=== PATIENT | female | born 1960 | race Caucasian/White ===

== ENCOUNTER 2016-10-31 19:04 | Observation (INO) | payer BC ==
--- NOTE | 2016-10-31 20:39 | PDOC ---
History of Present Illness - General Chief Complaint: Pain Stated Complaint: PAIN, ACUTE Time Seen by Provider: 10/31/16 19:34 History Source: Patient Exam Limitations: No Limitations - History of Present Illness Initial Comments: 10/31/16 23:55 10/27/2016: Colonoscopy 55-year-old female presents to the emergency department complaining of 4/10 dull intermittent left-sided flank pain radiating to the left groin 6 hours without nausea/vomiting, fever/chills, chest pain, shortness of breath, abdominal pains, urinary symptoms: Frequency/urgency/hesitancy, hematuria. There are no alleviating or exacerbating factors. Timing/Duration: 4-6 hours Past History - Past Medical History Allergies/Adverse Reactions: Allergies Allergy/AdvReac Type Severity Reaction Status Date / Time No Known Allergies Allergy Verified 06/30/15 12:49 Home Medications: Ambulatory Orders Atorvastatin Ca [Lipitor] 40 mg PO HS 07/18/13 Albuterol Sulfate Inhaler - [Ventolin HFA Inhaler -] 1 - 2 inh PO QID PRN Linaclotide [Linzess] 72 mcg PO DAILY 10/31/16 Metronidazole 250 mg PO TID 10/31/16 Ranitidine HCl 300 mg PO DAILY 10/31/16 Anemia: No Asthma: Yes (mild) Cancer: No Cardiac Disorders: No CVA: No COPD: No CHF: No Dementia: No Diabetes: No GI Disorders: Yes (acid reflux, Irritable Bowel Syndrome) Disorders: No HTN: No Hypercholesterolemia: Yes Liver Disease: No Seizures: No Thyroid Disease: No - Surgical History Abdominal Surgery: No Appendectomy: No Cardiac Surgery: No Cholecystectomy: No Gastric Stapling: No Lung Surgery: No Neurologic Surgery: No Orthopedic Surgery: No - Psycho/Social/Smoking Cessation Hx Anxiety: No Suicidal Ideation: No Smoking History: Never smoked Have you smoked in the past 12 months: No If you are a former smoker, when did you quit?: 2009 Information on smoking cessation initiated: No Hx Alcohol Use: No Drug/Substance Use Hx: No Substance Use Type: None Hx Substance Use Treatment: No *Physical Exam - Vital Signs Last Vital Signs Temp Pulse Resp BP Pulse Ox 98.0 F 78 18 140/74 99 10/31/16 19:23 10/31/16 19:23 10/31/16 19:23 10/31/16 19:23 10/31/16 19:23 ED Treatment Course - LABORATORY CBC & Chemistry Diagram: 10/31/16 19:40 10/31/16 19:40 *DC/Admit/Observation/Transfer Diagnosis at time of Disposition: Pyelonephritis - Discharge Dispostion Condition at time of disposition: Guarded Admit: Yes - Referrals Referrals: Kaci Ng MD [Primary Care Provider] -
[2016-10-31 21:09] LABS: BASOPHIL 0.1 % (0-2.0); MCH 26.9 pg (25.7-33.7); MCHC 32.9 g/dl (32.0-36.0); MEAN CELL VOLUME 81.7 fl (80-96); MEAN PLT VOLUME 8.5 fl (7.5-11.1); NEUTROPHILS 87.1 % (42.8-82.8); PLATELET COUNT 251 K/MM3 (134-434); RDW 14.3 % (11.6-15.6); WHITE BLOOD COUNT 18.7 K/mm3 (4.0-10.0)
[2016-10-31 21:34] LABS: ALBUMIN 3.9 g/dl (3.4-5.0); ANION GAP 7 (8-16); CALCIUM 9.4 mg/dL (8.5-10.1); CO2 27 mmol/L (21-32); CREATININE 0.7 mg/dL (0.55-1.02); GLUCOSE,RANDOM 107 mg/dL (74-106); SGOT/AST 24 U/L (15-37); SGPT/ALT 43 U/L (12-78)
[2016-10-31 21:35] LABS: ALK PHOS 138 U/L (45-117); BILIRUBIN,TOTAL 0.9 mg/dL (0.2-1.0); TOT PROT 7.3 g/dl (6.4-8.2)
[2016-10-31 21:38] LABS: URINE APPEARANCE SLCLOUDY; URINE BILIRUBIN NEGATIVE (NEGATIVE); URINE BLOOD NEGATIVE (NEGATIVE); URINE GLUCOSE (UA) NEGATIVE (NEGATIVE); URINE KETONE NEGATIVE (NEGATIVE); URINE LEUK ESTERASE TRACE (NEGATIVE); URINE NITRITE NEGATIVE (NEGATIVE); URINE PROTEIN NEGATIVE (NEGATIVE); URINE UROBILINOGEN NEGATIVE mg/dL (0.2-1.0)
[2016-10-31 21:39] LABS: URINE COLOR YELLOW
[2016-10-31 21:50] LABS: CALCIUM OXALATE CRYSTALS MODERATE /hpf (NONE SEEN); URINE HYALINE CAST 6 /lpf; URINE MUCUS MANY; URINE WBC 31 /hpf (3-5)
[2016-10-31] MEDS: SODIUM CHLORIDE 1,000 ML IV STA (21:52)
--- NOTE | 2016-10-31 22:30 | PDOC ---
*Physical Exam - Vital Signs Last Vital Signs Temp Pulse Resp BP Pulse Ox 98.0 F 78 18 140/74 99 10/31/16 19:23 10/31/16 19:23 10/31/16 19:23 10/31/16 19:23 10/31/16 19:23 ED Treatment Course - LABORATORY CBC & Chemistry Diagram: 11/01/16 09:57 11/01/16 09:57 - ADDITIONAL ORDERS Additional order review: Laboratory Results 10/31/16 10/31/16 21:20 19:40 Sodium 137 Potassium 3.7 Chloride 103 Carbon Dioxide 27 Anion Gap 7 L BUN 18 D Creatinine 0.7 Creat Clearance w eGFR > 60 Random Glucose 107 H D Calcium 9.4 Total Bilirubin 0.9 D AST 24 ALT 43 Alkaline Phosphatase 138 H Total Protein 7.3 Albumin 3.9 Urine Color Yellow Urine Appearance Slcloudy Urine pH 5.0 Urine Protein Negative Urine Glucose (UA) Negative Urine Ketones Negative Urine Blood Negative Urine Nitrite Negative Urine Bilirubin Negative Urine Urobilinogen Negative Ur Leukocyte Esterase Trace Urine RBC None Urine WBC 31 Calcium Oxalate Crystal Moderate Hyaline Casts 6 Urine Mucus Many 10/31/16 19:40 RBC 4.80 MCV 81.7 MCHC 32.9 RDW 14.3 MPV 8.5 Neutrophils % 87.1 H D Lymphocytes % 6.9 L D Monocytes % 4.9 Eosinophils % 1.0 Basophils % 0.1 - Medications Given in the ED: ED Medications Discontinued Medications Generic Name Dose Route Start Last Admin Trade Name Freq PRN Reason Stop Dose Admin Sodium Chloride 1,000 mls @ 1,000 mls/hr 10/31/16 20:40 10/31/16 21:52 Normal Saline - IV 10/31/16 21:39 1,000 mls/hr ASDIR STA Administration Medical Decision Making - Medical Decision Making 10/31/16 22:30 Pt seen by the Advanced Practice Provider under my direct supervision Ancillary studies reviewed I agree with plan as outlined by the Advanced Practice Provider TERRI Oh *DC/Admit/Observation/Transfer Diagnosis at time of Disposition: Pyelonephritis - Discharge Dispostion Condition at time of disposition: Guarded
[2016-11-01] MEDS ORDERED: CEFTRIAXONE 1 GM in DEXTROSE 5%-WATER - 50 ML IVPB ONE (00:39)
[2016-11-01] MEDS ORDERED: CEFTRIAXONE 50 ML ONE (00:58)
--- NOTE | 2016-11-01 02:14 | HP ---
CHIEF COMPLAINT: "My left side is hurting." PCP: Berenice HISTORY OF PRESENT ILLNESS: This is a 55yo woman presents to the emergency department complaining of 4/10 dull intermittent left-sided flank pain radiating to the left groin 6 hours with frequency and urgency without nausea/ vomiting, fever/chills, chest pain, shortness of breath, abdominal pains, urinary symptoms: hesitancy, hematuria. There are no alleviating or exacerbating factors. ER course was notable for: (1) pyuria (2) Leukocytosis Recent Travel: denies PAST MEDICAL HISTORY: IBS, GERD, HLD PAST SURGICAL HISTORY: denies Social History: Smoking: former- quit 5-6 years ago. 20 pack years prior Alcohol: occasional Drugs: occasional THC Family History: father and mother of "heart failure" 1 brother and 1 sister alive and healthy Allergies No Known Allergies Allergy (Verified 06/30/15 12:49) HOME MEDICATIONS: Home Medications Medication Instructions Recorded Atorvastatin Ca [Lipitor] 40 mg PO HS 07/18/13 Albuterol Sulfate Inhaler - 1 - 2 inh PO QID PRN 12/06/13 [Ventolin HFA Inhaler -] Linaclotide [Linzess] 72 mcg PO DAILY 10/31/16 Metronidazole 250 mg PO TID 10/31/16 Ranitidine HCl 300 mg PO DAILY 10/31/16 REVIEW OF SYSTEMS CONSTITUTIONAL: Absent: fever, chills, diaphoresis, generalized weakness, malaise, loss of appetite, weight change HEENT: Absent: rhinorrhea, nasal congestion, throat pain, throat swelling, difficulty swallowing, mouth swelling, ear pain, eye pain, visual changes CARDIOVASCULAR: Absent: chest pain, syncope, palpitations, irregular heart rate, lightheadedness , peripheral edema RESPIRATORY: Absent: cough, shortness of breath, dyspnea with exertion, orthopnea, wheezing, stridor, hemoptysis GASTROINTESTINAL: Absent: abdominal pain, abdominal distension, nausea, vomiting, diarrhea, constipation, melena, hematochezia GENITOURINARY: Present- frequency, urgency, left flank pain Absent: dysuria, hesitancy, hematuria, genital pain MUSCULOSKELETAL: Absent: myalgia, arthralgia, joint swelling, back pain, neck pain SKIN: Absent: rash, itching, pallor HEMATOLOGIC/IMMUNOLOGIC: Absent: easy bleeding, easy bruising, lymphadenopathy, frequent infections ENDOCRINE: Absent: unexplained weight gain, unexplained weight loss, heat intolerance, cold intolerance NEUROLOGIC: Absent: headache, focal weakness or paresthesias, dizziness, unsteady gait, seizure, mental status changes, bladder or bowel incontinence PSYCHIATRIC: Absent: anxiety, depression, suicidal or homicidal ideation, hallucinations. PHYSICAL EXAMINATION Vital Signs - 24 hr 11/01/16 01:59 Temperature 98.1 F Pulse Rate [ 71 Apical] Respiratory 18 Rate Blood Pressure 151/76 [Right Arm] O2 Sat by Pulse 99 Oximetry (%) GENERAL: Awake, alert, and fully oriented, in no acute distress. HEAD: Normal with no signs of trauma. EYES: Pupils equal, round and reactive to light, extraocular movements intact, sclera anicteric, conjunctiva clear. No lid lag. EARS, NOSE, THROAT: Ears normal, nares patent, oropharynx clear without exudates. Moist mucous membranes. NECK: Normal range of motion, supple without lymphadenopathy, JVD, or masses. LUNGS: Breath sounds equal, clear to auscultation bilaterally. No wheezes, and no crackles. No accessory muscle use. HEART: Regular rate and rhythm, normal S1 and S2 without murmur, rub or gallop. ABDOMEN: Soft, nontender, not distended, normoactive bowel sounds, no guarding, no rebound, no masses. No hepatomegaly or splenomegaly. MUSCULOSKELETAL: Normal range of motion at all joints. No bony deformities or tenderness. Left CVA tenderness present; right absent. UPPER EXTREMITIES: 2+ pulses, warm, well-perfused. No cyanosis. No clubbing. No peripheral edema. LOWER EXTREMITIES: 2+ pulses, warm, well-perfused. No calf tenderness. No peripheral edema. NEUROLOGICAL: Cranial nerves II-XII intact. Normal speech. Normal gait. PSYCHIATRIC: Cooperative. Good eye contact. Appropriate mood and affect. SKIN: Warm, dry, normal turgor, no rashes or lesions noted, normal capillary refill. ASSESSMENT/PLAN: A: 55 yo woman with pyelonephritis as evidenced by pyuria, flank pain and leukocytosis. P: 1. Pyelonephritis - Rocephin 1g daily - daily CBC - urine cx pending 2. Leukocytosis - likely from pyelo - trend WBC 3. HLD - lipitor 40mg 4. IBS - Linzess - Flagyl 250mg po tid 5. GERD - Zantac 300mg daily 6. F/E/N - regular diet - encourage PO fluids - replete prn 7. PPX - OOB Dispo- requires observation of her acute medical condition Problem List - Problem (1) Pyelonephritis Code(s): N12 - TUBULO-INTERSTITIAL NEPHRITIS, NOT SPCF ACUTE OR CHRONIC (2) History of IBS Code(s): Z87.19 - PERSONAL HISTORY OF OTHER DISEASES OF THE DIGESTIVE SYSTEM (3) HLD (hyperlipidemia) Code(s): E78.5 - HYPERLIPIDEMIA, UNSPECIFIED (4) Chronic GERD Code(s): K21.9 - GASTRO-ESOPHAGEAL REFLUX DISEASE WITHOUT ESOPHAGITIS Visit type - Emergency Visit Emergency Visit: Yes ED Registration Date: 11/01/16 Care time: The patient presented to the Emergency Department on the above date and was hospitalized for further evaluation of their emergent condition. - New Patient This patient is new to me today: Yes Date on this admission: 11/01/16 - Critical Care Critical Care patient: No
[2016-11-01 03:10] VITALS: BMI 32.2
[2016-11-01] MEDS ORDERED: ACETAMINOPHEN 325 MG TABLET (FP) PO PRN (03:30)
[2016-11-01] MEDS: metroNIDAZOLE 250 MG TABLET PO SCH ×3 (06:22→21:03)
[2016-11-01] MEDS: RANITIDINE HCL 150 MG TABLET (FP) PO SCH (09:06)
--- NOTE | 2016-11-01 09:44 | PN ---
Progress Note (short form) - Note Progress Note: 55 y/o female admitted for left sided flank pain and urgency and diagnosed with pyelonephritis Exam: GEN: A&Ox3 in NAD, afebrile HEENT: NC, PERRLA, EOMI, oral mucosa moist and no lesions CVS:RRR, S1, S2 LUNGS: CTA, no wheezing ABD: Soft, NT, ND, BS+ , no organomegaly No CVA tenderness. Ext:Nl ROM, no Edema Neuro: CN2-12 intact A/P: Pyelonephritis IVF continue ABx rocephine Repeat CBC, BMP and lactic acid stat. WBC trending down. IBS continue home medications Problem List - Problems (1) Pyelonephritis Code(s): N12 - TUBULO-INTERSTITIAL NEPHRITIS, NOT SPCF ACUTE OR CHRONIC (2) History of IBS Code(s): Z87.19 - PERSONAL HISTORY OF OTHER DISEASES OF THE DIGESTIVE SYSTEM Visit type - Emergency Visit Emergency Visit: Yes ED Registration Date: 11/01/16 Care time: The patient presented to the Emergency Department on the above date and was hospitalized for further evaluation of their emergent condition. - New Patient This patient is new to me today: Yes Date on this admission: 11/01/16 - Critical Care Critical Care patient: No
[2016-11-01] MEDS ORDERED: cefTRIAXone 1 GM/50 ML BAG (PRE-DOCKED) IVPB SCH (10:00)
[2016-11-01 10:03] LABS: BASOPHIL 2.6 % (0-2.0); EOSINOPHIL 2.5 % (0-4.5); MCH 26.9 pg (25.7-33.7); MCHC 33.3 g/dl (32.0-36.0); MEAN PLT VOLUME 8.1 fl (7.5-11.1); NEUTROPHILS 76.2 % (42.8-82.8); PLATELET COUNT 255 K/MM3 (134-434); RDW 14.4 % (11.6-15.6); WHITE BLOOD COUNT 10.3 K/mm3 (4.0-10.0)
[2016-11-01 10:35] LABS: ANION GAP 8 (8-16); CO2 27 mmol/L (21-32); CREATININE 0.6 mg/dL (0.55-1.02); GLUCOSE,RANDOM 108 mg/dL (74-106)
[2016-11-01] MEDS: PATIENT'S OWN MEDICATION (NON-FORMULARY) (Linaclotide [Linzess] 72 MCG) PO SCH (11:21)
[2016-11-01] MEDS ORDERED: cefTRIAXone SODIUM 1 GM VIAL ONE (19:56)
[2016-11-01] MEDS ORDERED: DEXTROSE 5%-WATER - 50 ML IVPB ONE (19:56)
[2016-11-01] MEDS: CEFTRIAXONE 1 GM in DEXTROSE 5%-WATER - 50 ML IVPB SCH (19:58)
[2016-11-01] MEDS ORDERED: ATORVASTATIN CA 40 MG TABLET (FP) PO SCH (22:00)
[2016-11-02] MEDS: metroNIDAZOLE 250 MG TABLET PO SCH (05:41)
[2016-11-02 08:20] LABS: ANION GAP 9 (8-16); CO2 27 mmol/L (21-32); CREATININE 0.7 mg/dL (0.55-1.02); GLUCOSE,RANDOM 88 mg/dL (74-106)
[2016-11-02] MEDS ORDERED: cefTRIAXone SODIUM 1 GM VIAL ONE (08:47)
[2016-11-02] MEDS ORDERED: DEXTROSE 5%-WATER - 50 ML IVPB ONE (08:47)
[2016-11-02] MEDS: RANITIDINE HCL 150 MG TABLET (FP) PO SCH (09:18)
[2016-11-02] MEDS: PATIENT'S OWN MEDICATION (NON-FORMULARY) (Linaclotide [Linzess] 72 MCG) PO SCH (09:18)
[2016-11-02] MEDS: CEFTRIAXONE 1 GM in DEXTROSE 5%-WATER - 50 ML IVPB SCH (09:18)
[2016-11-02 11:28] VITALS: BP 118/73; PULSE 80; TEMP 98.3
[2016-11-02 11:45] LABS: BASOPHIL 0.2 % (0-2.0); EOSINOPHIL 3.4 % (0-4.5); MCH 26.7 pg (25.7-33.7); MCHC 32.5 g/dl (32.0-36.0); MEAN CELL VOLUME 82.1 fl (80-96); MEAN PLT VOLUME 8.7 fl (7.5-11.1); NEUTROPHILS 74.8 % (42.8-82.8); PLATELET COUNT 239 K/MM3 (134-434); RDW 14.2 % (11.6-15.6); WHITE BLOOD COUNT 10.3 K/mm3 (4.0-10.0)
--- NOTE | 2016-11-02 12:14 | DS ---
Physical Exam: SUBJECTIVE: Patient seen and examined, c/o pain in buttock area, no leg pain or numbness. Denies any fever or chills, no increased frequency and or hematuria. OBJECTIVE: Vital Signs Period Temp Pulse Resp BP Sys/Landin Pulse Ox Last 24 Hr 97.8 F-99.0 F 71-80 18-20 106-138/55-75 96-100 PHYSICAL EXAM GENERAL: The patient is awake, alert, and fully oriented, in no acute distress. HEAD: Normal with no signs of trauma. EYES: PERRL, extraocular movements intact, sclera anicteric, conjunctiva clear. ENT: Ears normal, nares patent, oropharynx clear without exudates, moist mucous membranes. NECK: Trachea midline, full range of motion, supple. LUNGS: Breath sounds equal, clear to auscultation bilaterally, no wheezes, no crackles, no accessory muscle use. HEART: Regular rate and rhythm, S1, S2 without murmur, rub or gallop. ABDOMEN: Soft, nontender, nondistended, normoactive bowel sounds, no guarding, no rebound, no hepatosplenomegaly, no masses. MSK: Lumbar sacral paraspinal tenderness. EXTREMITIES: 2+ pulses, warm, well-perfused, no edema. NEUROLOGICAL: Cranial nerves II through XII grossly intact. Normal speech, gait not observed. PSYCH: Normal mood, normal affect. SKIN: Warm, dry, normal turgor, no rashes or lesions noted. LABS Laboratory Results - last 24 hr 11/02/16 11/02/16 06:00 06:00 WBC 10.3 H RBC 4.64 Hgb 12.4 Hct 38.1 MCV 82.1 MCH 26.7 MCHC 32.5 RDW 14.2 Plt Count 239 MPV 8.7 Neutrophils % 74.8 Lymphocytes % 14.6 Monocytes % 7.0 Eosinophils % 3.4 Basophils % 0.2 Sodium 143 Potassium 4.1 Chloride 107 Carbon Dioxide 27 Anion Gap 9 BUN 15 D Creatinine 0.7 Random Glucose 88 Calcium 9.0 Current Medications Generic Name Dose Route Start Last Admin Trade Name Freq PRN Reason Stop Dose Admin Acetaminophen 650 mg 11/01/16 03:30 11/01/16 11:20 Tylenol - PO 650 mg Q4H PRN Administration FEVER OR PAIN Atorvastatin Calcium 40 mg 11/01/16 22:00 11/01/16 21:03 Lipitor - PO 40 mg HS SHAYE Administration Ceftriaxone Sodium 1 gm/ 50 mls @ 100 mls/hr 11/01/16 20:00 11/02/16 09:18 Dextrose IVPB 100 mls/hr DAILY SHAYE Administration Metronidazole 250 mg 11/01/16 06:00 11/02/16 05:41 Flagyl - PO 250 mg TID SHAYE Administration Non-Formulary Medication 72 mcg 11/01/16 10:00 11/02/16 09:18 Linaclotide [Linzess] PO 72 mcg DAILY SHAYE Administration Ranitidine HCl 300 mg 11/01/16 10:00 11/02/16 09:18 Zantac - PO 300 mg DAILY SHAYE Administration HOSPITAL COURSE: Admitted for Pyelonephritis and given Ceftriaxone IVPB, WBC trended down. Will continue home medications and add levaquin 750mg q24h for 5days. Tylenol PRN for pain or fever. Date of Admission:11/01/16 Date of Discharge: 11/02/16 Minutes to complete discharge: 40 Discharge Summary Reason For Visit: PYELONEPHRITIS Current Active Problems Chronic GERD (Acute) HLD (hyperlipidemia) (Acute) History of IBS (Acute) Pyelonephritis (Acute) Hospital Course: Started on ceftriaxone , WBCs trended down and patient's symptoms were relieved. Continue Levaquin 750mg daily for 5 days Condition: Good - Instructions Diet, Activity, Other Instructions: Plain yogurt daily Referrals: Kaci Ng MD [Primary Care Provider] - Disposition: HOME - Home Medications Comprehensive Discharge Medication List: Ambulatory Orders Atorvastatin Ca [Lipitor] 40 mg PO HS 07/18/13 Albuterol Sulfate Inhaler - [Ventolin HFA Inhaler -] 1 - 2 inh PO QID PRN Linaclotide [Linzess] 72 mcg PO DAILY 10/31/16 Metronidazole 250 mg PO TID 10/31/16 Ranitidine HCl 300 mg PO DAILY 10/31/16 Problem List - Problems (1) Pyelonephritis Code(s): N12 - TUBULO-INTERSTITIAL NEPHRITIS, NOT SPCF ACUTE OR CHRONIC (2) History of IBS Code(s): Z87.19 - PERSONAL HISTORY OF OTHER DISEASES OF THE DIGESTIVE SYSTEM This patient is new to me today: Yes Date on this admission: 11/02/16 Emergency Visit: Yes ED Registration Date: 11/01/16 Care time: The patient presented to the Emergency Department on the above date and was hospitalized for further evaluation of their emergent condition. Critical Care patient: No - Discharge Referral Referred to [facility] No
[2016-11-02] MEDS ORDERED: PT OWN MED DRAWER 7, Y5N ONE (14:18)
== END 2016-11-02 13:34 | disposition home or self-care (01) ==
LOC: JER 19:04 → JERBED 11-01 01:04 → J7W 11-01 02:58
PROVIDERS: ADMIT Internal Medicine; ATTEND Internal Medicine
PROC: 3E03329 Introduction of Other Anti-infective into Peripheral Vein, Percutaneous Approach (ICD-10-PCS; principal; 2016-11-01)
PROC: 3E0337Z Introduction of Electrolytic and Water Balance Substance into Peripheral Vein, Percutaneous Approach (ICD-10-PCS; 2016-11-01)
DX: N11.1 Chronic obstructive pyelonephritis (principal); D72.829 Elevated white blood cell count, unspecified; E78.5 Hyperlipidemia, unspecified; K21.9 Gastro-esophageal reflux disease without esophagitis; Z87.19 Personal history of other diseases of the digestive system
CPT/HCPCS: 36415; 74176; 80048; 80053; 81003; 81015; 83605; 85025; 87086; 99285-25; G0378

== ENCOUNTER 2016-11-30 19:48 | Inpatient (IN) | payer BC ==
[2016-11-30 20:39] LABS: URINE APPEARANCE CLEAR; URINE BILIRUBIN NEGATIVE (NEGATIVE); URINE BLOOD NEGATIVE (NEGATIVE); URINE COLOR YELLOW; URINE GLUCOSE (UA) NEGATIVE (NEGATIVE); URINE KETONE NEGATIVE (NEGATIVE); URINE LEUK ESTERASE NEGATIVE (NEGATIVE); URINE NITRITE NEGATIVE (NEGATIVE); URINE PROTEIN NEGATIVE (NEGATIVE); URINE UROBILINOGEN NEGATIVE mg/dL (0.2-1.0)
--- NOTE | 2016-11-30 21:08 | PDOC ---
History of Present Illness - General History Source: Patient Exam Limitations: No Limitations - History of Present Illness Initial Comments: 11/30/16 21:26 The patient is a 56 year old female with a significant past medical history of recurrent UtIs, acid reflux, IBS, and HLD who presents to the ED with complaints of superpubic pain since earlier today. The patient reports a sudden onset of superpubic pain around 6:30 pm earlier today. She states her pain progressively worsened and her superpubic pain is now radiating to her left flank. Patient also reports one episode of vomiting associated with presents symptoms. Patient states she was recently prescribed Cipro on Thursday for a UTI. Patient was recently admitted to the hospital on 10/31/16 for pyelonephritis. Denies fevers or chills. Denies chest pain or shortness of breath. Denies headache, lightheadedness, or dizziness. Denies dysuria or changes in urinary output. Denies any other symptoms. PCP: Dr. Ng GL: Dr. Parkinson <Leo Earl - Last Filed: 11/30/16 23:52> <Rebeca Grace - Last Filed: 12/01/16 01:08> - General Chief Complaint: Pain Stated Complaint: PAIN Time Seen by Provider: 11/30/16 20:27 Past History <Leo Earl - Last Filed: 11/30/16 23:52> - Past Medical History Anemia: No Asthma: Yes (mild) Cancer: No Cardiac Disorders: No CVA: No COPD: No CHF: No Dementia: No Diabetes: No GI Disorders: Yes (acid reflux, Irritable Bowel Syndrome) Disorders: Yes (UTIs) HTN: No Hypercholesterolemia: Yes Liver Disease: No Seizures: No Thyroid Disease: No - Surgical History Abdominal Surgery: No Appendectomy: No Cardiac Surgery: No Cholecystectomy: No Gastric Stapling: No Lung Surgery: No Neurologic Surgery: No Orthopedic Surgery: No - Suicide/Smoking/Psychosocial Hx Smoking History: Never smoked Have you smoked in the past 12 months: No Number of Cigarettes Smoked Daily: 0 If you are a former smoker, when did you quit?: 2009 Information on smoking cessation initiated: No Hx Alcohol Use: No Drug/Substance Use Hx: No Substance Use Type: None Hx Substance Use Treatment: No <Rebeca Grace - Last Filed: 12/01/16 01:08> - Past Medical History Allergies/Adverse Reactions: Allergies Allergy/AdvReac Type Severity Reaction Status Date / Time No Known Allergies Allergy Verified 11/30/16 20:09 Home Medications: Ambulatory Orders Atorvastatin Ca [Lipitor] 40 mg PO HS 07/18/13 Albuterol Sulfate Inhaler - [Ventolin HFA Inhaler -] 1 - 2 inh PO QID PRN Linaclotide [Linzess] 72 mcg PO DAILY 10/31/16 Metronidazole 250 mg PO TID 10/31/16 Ranitidine HCl 300 mg PO DAILY 10/31/16 Review of Systems - Review of Systems Able to Perform ROS?: Yes Comments:: 11/30/16 21:26 CONSTITUTIONAL: No reported: Fever, Chills, Diaphoresis, Generalized Weakness, Malaise, Loss of Appetite HEENT: No reported: Rhinorrhea, Nasal Congestion, Throat Pain, Throat Swelling, Difficulty Swallowing, Mouth Swelling, Ear Pain, Eye Pain, Visual Changes CARDIOVASCULAR: No reported: Chest Pain, Syncope, Palpitations, Irregular Heart Rate, Lightheadedness, Peripheral Edema RESPIRATORY: No reported: Cough, Shortness of Breath, SOB with Exertion, Orthopnea, Wheezing , Stridor, Hemoptysis GASTROINTESTINAL: + vomiting No reported: Abdominal pain, Abdominal Distension, Diarrhea, Constipation, Melena, Hematochezia GENITOURINARY:+ superpubic pain, flank pain No reported: Dysuria, Frequency, Urgency, Hesitancy,, Genital Pain MUSCULOSKELETAL: No reported: Myalgia, Arthralgia, Joint Swelling, Back pain, Neck Pain SKIN: No reported: Rash, Itching, Pallor HEMEATOLOGIC/IMMUNOLOGIC: No reported: Easy Bleeding, Easy Bruising, Lymphadenopathy, Frequent infections ENDOCRINE: No reported: Unexplained Weight Gain, Unexplained Weight Loss, Heat Intolerance , Cold Intolerance NEUROLOGIC: No reported: Headache, Focal Weakness, Paresthesias, Vertigo, Lightheadedness, Unsteady Gait, Seizure, Mental Status Changes, Incontinence PSYCHIATRIC: No reported: Anxiety, Depression All Other Systems: Reviewed and Negative <Leo Earl - Last Filed: 11/30/16 23:52> *Physical Exam - Vital Signs Last Vital Signs Temp Pulse Resp BP Pulse Ox 97.9 F 86 20 200/149 97 11/30/16 20:10 11/30/16 20:10 11/30/16 20:10 11/30/16 20:10 11/30/16 20:10 - Physical Exam Comments: 11/30/16 21:26 GENERAL: Well developed, well nourished. Awake and alert. No acute distress. HEENT: Normocephalic, atraumatic. PERRLA, EOMI. No conjunctival pallor. Sclera are non- icteric. Moist mucous membranes. Oropharynx is clear. NECK: Supple. Full ROM. No JVD. Carotid pulses 2+ and symmetric, without bruits. No thyromegaly. No lymphadenopathy. CARDIOVASCULAR: Regular rate and rhythm. No murmurs, rubs, or gallops. Distal pulses are 2+ and symmetric. PULMONARY: No evidence of respiratory distress. Lungs clear to auscultation bilaterally. No wheezing, rales or rhonchi. ABDOMINAL:+ Superpubic discomfort Soft. Non-tender. Non-distended. No rebound or guarding. No organomegaly. Normoactive bowel sounds. MUSCULOSKELETAL Normal range of motion at all joints. No bony deformities or tenderness. No CVA tenderness. EXTREMITIES: No cyanosis. No clubbing. No calf tenderness. Full rom, no cellulitis, no pitting edema. SKIN: Warm and dry. Normal capillary refill. No rashes. No jaundice. NEUROLOGICAL: Alert, awake, appropriate. Cranial nerves 2-12 intact. No deficits to light touch and temperature in face, upper extremities and lower extremities. No motor deficits in the in face, upper extremities and lower extremities. Normoreflexic in the upper and lower extremities. Normal speech. Toes are down- going bilaterally. Gait is normal without ataxia. PSYCHIATRIC: Cooperative. Good eye contact. Appropriate mood and affect. <Leo Earl - Last Filed: 11/30/16 23:52> - Vital Signs Last Vital Signs Temp Pulse Resp BP Pulse Ox 97.9 F 86 20 200/149 97 11/30/16 20:10 11/30/16 20:10 11/30/16 20:10 11/30/16 20:10 11/30/16 20:10 <Rebeca Grace - Last Filed: 12/01/16 01:08> ED Treatment Course - LABORATORY CBC & Chemistry Diagram: 11/30/16 22:15 11/30/16 22:15 - ADDITIONAL ORDERS Additional order review: Laboratory Results 11/30/16 20:20 Urine Color Yellow Urine Appearance Clear Urine pH 5.0 Urine Protein Negative Urine Glucose (UA) Negative Urine Ketones Negative Urine Blood Negative Urine Nitrite Negative Urine Bilirubin Negative Urine Urobilinogen Negative - RADIOLOGY Radiograph Interpretation: 11/30/16 23:52 EXAM: CT abdomen and pelvis without contrast IMPRESSION: Mild left hydronephrosis secondary to a 1 mm distal UVJ stone, possible ruptured calyx Reported by: Imaging customer sales consultant <Leo Earl - Last Filed: 11/30/16 23:52> - LABORATORY CBC & Chemistry Diagram: 11/30/16 22:15 11/30/16 22:15 - ADDITIONAL ORDERS Additional order review: Laboratory Results 11/30/16 20:20 Urine Color Yellow Urine Appearance Clear Urine pH 5.0 Urine Protein Negative Urine Glucose (UA) Negative Urine Ketones Negative Urine Blood Negative Urine Nitrite Negative Urine Bilirubin Negative Urine Urobilinogen Negative <Rebeca Grace - Last Filed: 12/01/16 01:08> Medical Decision Making - Medical Decision Making 12/01/16 01:00 56-year-old female presents with severe left flank pain radiating to her left groin that started suddenly today. She vomited several times. She is currently already on antibiotics for pyelonephritis. She saw her primary doctor on Thursday and was time she felt well. She was admitted last month for pyelonephritis. Today she has a leukocytosis of 17,000,. Urinalysis is negative, but her CAT scan does show a 1 mm stone at the left UVJ with mild left hydronephrosis. There is concern that she might have a ruptured calyx. Discussed CAT scan and lab results with Dr. Kaci Ng and he wanted her admitted. Dr. Bocanegra is a urologist for consultation <Rebeca Grace - Last Filed: 12/01/16 01:08> *DC/Admit/Observation/Transfer - Attestations Scribe Attestion: 11/30/16 21:26 Documentation prepared by Leo Earl, acting as medical representative for Rebeca Grace MD <Leo Earl - Last Filed: 11/30/16 23:52> - Discharge Dispostion Admit: Yes <Rebeca Grace - Last Filed: 12/01/16 01:08> Diagnosis at time of Disposition: Kidney stone on left side Hydronephrosis Qualifiers: Hydronephrosis type: unspecified Qualified Code(s): N13.30 - Unspecified hydronephrosis Vomiting Qualifiers: Vomiting type: unspecified Vomiting Intractability: non-intractable Nausea presence: with nausea Qualified Code(s): R11.2 - Nausea with vomiting, unspecified - Discharge Dispostion Condition at time of disposition: Stable - Referrals Referrals: Fabricio Galvan MD [Primary Care Provider] -
[2016-11-30] MEDS ORDERED: ACETAMINOPHEN 325 MG TABLET (FP) PO ONE (21:46)
[2016-11-30] MEDS ORDERED: ONDANSETRON *ODT* 4 MG TABLET SL ONE (21:47)
[2016-11-30] MEDS ORDERED: ACETAMINOPHEN 325 MG TABLET (FP) ONE (21:52)
[2016-11-30] MEDS ORDERED: ONDANSETRON *ODT* 4 MG TABLET ONE (21:53)
[2016-11-30 22:25] LABS: BASOPHIL 0.2 % (0-2.0); EOSINOPHIL 1.5 % (0-4.5); MCH 26.4 pg (25.7-33.7); MCHC 32.5 g/dl (32.0-36.0); MEAN CELL VOLUME 81.2 fl (80-96); MEAN PLT VOLUME 7.9 fl (7.5-11.1); NEUTROPHILS 87.3 % (42.8-82.8); PLATELET COUNT 259 K/MM3 (134-434); RDW 14.3 % (11.6-15.6); WHITE BLOOD COUNT 17.5 K/mm3 (4.0-10.0)
[2016-11-30 22:49] LABS: ALBUMIN 3.6 g/dl (3.4-5.0); ALK PHOS 154 U/L (45-117); ANION GAP 8 (8-16); BILIRUBIN,TOTAL 0.5 mg/dL (0.2-1.0); CO2 26 mmol/L (21-32); CREATININE 0.8 mg/dL (0.55-1.02); GLUCOSE,RANDOM 152 mg/dL (74-106); SGOT/AST 27 U/L (15-37); SGPT/ALT 40 U/L (12-78); TOT PROT 6.8 g/dl (6.4-8.2)
[2016-12-01] MEDS ORDERED: ACETAMINOPHEN 325 MG TABLET (FP) PO PRN (01:04)
[2016-12-01] MEDS ORDERED: ONDANSETRON 4 MG/2 ML VIAL IVPB PRN (01:10)
[2016-12-01] MEDS: D5-1/2NS+20 MEQ KCL - 1,000 ML IV SCH ×3 (01:52→22:34)
[2016-12-01] MEDS: PIPERACILLIN/TAZOB 3.375 GM/50 ML PRE-DOCKED IVPB SCH ×2 (01:52→10:15)
[2016-12-01] MEDS ORDERED: PIPERACILLIN/TAZOB 3.375 GM/50 ML PRE-DOCKED IVPB ONE (02:30)
[2016-12-01 03:45] VITALS: BMI 31.9
[2016-12-01 08:59] LABS: ALBUMIN 3.4 g/dl (3.4-5.0); ALK PHOS 135 U/L (45-117); ANION GAP 11 (8-16); BILIRUBIN,TOTAL 0.8 mg/dL (0.2-1.0); CALCIUM 9.2 mg/dL (8.5-10.1); CO2 25 mmol/L (21-32); CREATININE 0.6 mg/dL (0.55-1.02); GLUCOSE,RANDOM 94 mg/dL (74-106); SGOT/AST 19 U/L (15-37); SGPT/ALT 34 U/L (12-78); TOT PROT 6.2 g/dl (6.4-8.2)
--- NOTE | 2016-12-01 09:15 | CON.ID ---
Consult Consult Specialty:: Infectious Disease Reason for Consultation:: Possible Pyelonephritis - History of Present Illness Chief Complaint: Suprapubic pain with radiation to L flank History of Present Illness: 56yo F with history of HLD and previous hospital admission on 10/31/16 for pyelonephritis who presents to this facility for sudden onset of severe suprapubic pain with associated radiation to her L flank. She states that last night she was sitting and relaxing when she started to develop her severe suprapubic pain. She reports it being similar in character when compared to her 10/31/16 pain, however this was much more severe. Pt also reports an inability to produce an adequate amount of urine when trying to void. Pt reports being compliant on Ciprofloxacin since Thursday11/25/[address] Ng's office for treatment of her elevated white count alongside history of urinary symptoms. In the ER, she given a one-time Zosyn 3.375 dose, Abdominal CT was performed, and urology was also consulted. Currently, pt continues to have suprapubic pain with radiation to L flank and had her first adequate volume of urine produced without note of blood, mucus, or cola-coloured urine. Denies any fevers/chills, nausea/vomiting, diarrhea/ constipation, SOB, CP/discomfort, and dysuria. PCP: Dr. Ng - History Source History Provided By: Patient Limitations to Obtaining History: No Limitations - Past Medical History Cardio/Vascular: Yes: Hyperlipdemia Gastrointestinal: Yes: Irritable Bowel Disease Renal/: Yes: UTI (previously admitted for pyelonephritis 10/31/16) Endocrine: No: Diabetes Mellitus - Past Surgical History Past Surgical History: Yes: Tonsillectomy - Alcohol/Substance Use Hx Alcohol Use: No History of Substance Use: reports: None - Smoking History Smoking history: Former smoker Have you smoked in the past 12 months: No Aproximately how many cigarettes per day: 10 If you are a former smoker, when did you quit?: 2011 - Social History Usual Living Arrangement: Alone History of Recent Travel: No Home Medications - Allergies Allergies/Adverse Reactions: Allergies Allergy/AdvReac Type Severity Reaction Status Date / Time No Known Allergies Allergy Verified 11/30/16 20:09 - Home Medications Home Medications: Ambulatory Orders RX: Atorvastatin Ca [Lipitor] 40 mg PO HS 07/18/13 Albuterol Sulfate Inhaler - [Ventolin HFA Inhaler -] 1 - 2 inh PO QID PRN Linaclotide [Linzess] 72 mcg PO DAILY 10/31/16 RX: Metronidazole 250 mg PO TID 10/31/16 RX: Ranitidine HCl 300 mg PO DAILY 10/31/16 Physical Exam Vital Signs: Vital Signs Temperature 97.3 F L 12/01/16 08:53 Pulse Rate 73 12/01/16 08:53 Respiratory Rate 12/01/16 08:53 Blood Pressure 102/56 12/01/16 08:53 O2 Sat by Pulse Oximetry (%) 97 12/01/16 04:15 Constitutional: Yes: Well Nourished, No Distress, Calm Eyes: Yes: EOM Intact, PERRL Respiratory: Yes: Regular, CTA Bilaterally. No: Rhonchi, SOB, Wheezes Gastrointestinal: Yes: Normal Bowel Sounds, Soft, Tenderness (Suprapubic tenderness). No: Distention, Tenderness, Rebound Renal/: Yes: CVA Tenderness - Right. No: Arora Present Edema: No Neurological: Yes: Alert, Oriented Psychiatric: Yes: Alert, Oriented Labs: CBC, BMP 11/30/16 22:15 12/01/16 06:00 Imaging - Results Cat Scan: Report Reviewed, Image Reviewed (Left nephrolithiasis appreciated at UVJ. B/L kidney stranding possible calyx rupture vs inflammation by my read) Assessment/Plan Assessment : Leukocytosis Obstructing nephrolithiasis with hydronephros R/O Kidney Calyx rupture Plan: Pt pain much improved from last night Cultures pending; previously pre-treated with Ciprofloxacin 500mg PO on an outpatient basis Trend WBC Urology already consulted; will await plan D/C Zosyn Start Ceftriaxone 1gm IV qDaily
[2016-12-01] MEDS ORDERED: FLU VACCINE QUAD 60 MCG/0.5 ML (MDV 17-18) IM ONE (10:00)
[2016-12-01] MEDS ORDERED: PATIENT'S OWN MEDICATION (NON-FORMULARY) (Linaclotide [Linzess] 72 MCG) PO SCH (10:00)
--- NOTE | 2016-12-01 10:07 | PN ---
Teaching Attending Note Name of Resident: Richard Bishop ATTENDING PHYSICIAN STATEMENT I saw and evaluated the patient. I reviewed the resident's note and discussed the case with the resident. I agree with the resident's findings and plan as documented. SUBJECTIVE:Patient seen and examined with resident OBJECTIVE: ASSESSMENT AND PLAN: Selected Entries 12/01/16 08:53 Temperature 97.3 F L Pulse Rate 73 Respiratory 17 Rate Blood Pressure 102/56 Abd Lower abd mostly RLQ pain no guarding rebound and right CVA pain Microbiology Laboratory Tests 11/30/16 11/30/16 12/01/16 20:20 22:15 06:00 WBC 17.5 H D Hgb 12.2 Plt Count 259 BUN 17 Creatinine 0.6 D Urine Nitrite Negative Assessment Right kidney stone with leukocytosis ( on cipro SCIENTOLOGIST) Plan Urine culture Ceftriaxone 1 gram daily Urology eval ? stenting Analgesics Lai MUÑOZ
[2016-12-01] MEDS ORDERED: cefTRIAXone SODIUM 1 GM VIAL ONE (10:53)
[2016-12-01] MEDS ORDERED: DEXTROSE 5%-WATER - 50 ML IVPB ONE (10:53)
[2016-12-01] MEDS: RANITIDINE HCL 150 MG TABLET (FP) PO SCH (11:03)
[2016-12-01] MEDS: CEFTRIAXONE 1 GM in DEXTROSE 5%-WATER - 50 ML IVPB SCH (11:13)
[2016-12-01] MEDS ORDERED: INSULIN (NOVOLOG) ASPART 100 UNITS/ML 10ML VIAL ONE (11:34)
--- NOTE | 2016-12-01 11:39 | HP ---
Admitting History and Physical - Primary Care Physician PCP: Kaci Ng - Admission Chief Complaint: left sided pain History of Present Illness: The patient is a 56 year old female with a significant past medical history of recurrent UtIs, acid reflux, IBS, and HLD who presents to the ED with complaints of suprapubic pain since earlier yesterday. The patient reports a sudden onset of suprapubic pain around 6:30 pm yesterday. She states her pain progressively worsened and her suprapubic pain is now radiating to her left flank. Patient also reports one episode of vomiting associated with presents symptoms. Patient states she was recently prescribed Cipro on Thursday for a UTI. Patient was recently admitted to the hospital on 10/31/16 for pyelonephritis and got abx. Denies fevers or chills. Denies chest pain or shortness of breath. Denies headache, lightheadedness, or dizziness. Denies dysuria or changes in urinary output. Denies any other symptoms. PCP: Dr. Ng GL: Dr. Parkinson in ER found leukocytosis ct scan shows stone at UVJ leftside and left sided hydronephrosis on iv abx History Source: Patient - Past Medical History Cardiovascular: Yes: Hyperlipdemia Gastrointestinal: Yes: Irritable Bowel Disease Renal/: Yes: UTI (previously admitted for pyelonephritis 10/31/16) Endocrine: No: Diabetes Mellitus - Past Surgical History Past Surgical History: Yes: Tonsillectomy - Smoking History Smoking history: Former smoker Have you smoked in the past 12 months: No Aproximately how many cigarettes per day: 10 If you are a former smoker, when did you quit?: 2011 - Alcohol/Substance Use Hx Alcohol Use: No History of Substance Use: reports: None - Social History History of Recent Travel: No Home Medications - Allergies Allergies/Adverse Reactions: Allergies Allergy/AdvReac Type Severity Reaction Status Date / Time No Known Allergies Allergy Verified 11/30/16 20:09 - Home Medications Home Medications: Ambulatory Orders Atorvastatin Ca [Lipitor] 40 mg PO HS 07/18/13 Albuterol Sulfate Inhaler - [Ventolin HFA Inhaler -] 1 - 2 inh PO QID PRN Linaclotide [Linzess] 72 mcg PO DAILY 10/31/16 Metronidazole 250 mg PO TID 10/31/16 Ranitidine HCl 300 mg PO DAILY 10/31/16 Review of Systems - Review of Systems Gastrointestinal: reports: Other (left sided cva pain) Physical Examination Vital Signs: Vital Signs Temperature 97.3 F L 12/01/16 08:53 Pulse Rate 73 12/01/16 08:53 Respiratory Rate 17 12/01/16 08:53 Blood Pressure 102/56 12/01/16 08:53 O2 Sat by Pulse Oximetry (%) 97 12/01/16 04:15 Constitutional: Yes: Calm Cardiovascular: Yes: Regular Rate and Rhythm, S1, S2 Respiratory: Yes: CTA Bilaterally Gastrointestinal: Yes: Normal Bowel Sounds, Soft, Other (left cva tenderness) Edema: No Neurological: Yes: Alert, Oriented Labs: CBC, BMP 12/01/16 06:00 Imaging - Results Cat Scan: Report Reviewed Problem List - Problems (1) Hydronephrosis Assessment/Plan: NPO for possible stenting ivf urology eval pending Code(s): N13.30 - UNSPECIFIED HYDRONEPHROSIS Qualifiers: Hydronephrosis type: unspecified Qualified Code(s): N13.30 - Unspecified hydronephrosis (2) Kidney stone on left side Assessment/Plan: ivf iv abx Code(s): N20.0 - CALCULUS OF KIDNEY (3) Leukocytosis Assessment/Plan: repeat cbc today Code(s): D72.829 - ELEVATED WHITE BLOOD CELL COUNT, UNSPECIFIED (4) HLD (hyperlipidemia) Assessment/Plan: on statin Code(s): E78.5 - HYPERLIPIDEMIA, UNSPECIFIED (5) Chronic GERD Assessment/Plan: zantac Code(s): K21.9 - GASTRO-ESOPHAGEAL REFLUX DISEASE WITHOUT ESOPHAGITIS (6) History of IBS Assessment/Plan: to use own medication linaclotide Code(s): Z87.19 - PERSONAL HISTORY OF OTHER DISEASES OF THE DIGESTIVE SYSTEM
[2016-12-01 13:36] LABS: BASOPHIL 0.2 % (0-2.0); EOSINOPHIL 2.8 % (0-4.5); MCH 26.7 pg (25.7-33.7); MCHC 32.6 g/dl (32.0-36.0); MEAN CELL VOLUME 81.8 fl (80-96); NEUTROPHILS 75.3 % (42.8-82.8); PLATELET COUNT 241 K/MM3 (134-434); RDW 14.3 % (11.6-15.6); WHITE BLOOD COUNT 12.3 K/mm3 (4.0-10.0)
--- NOTE | 2016-12-01 14:02 | CON.GU ---
Consult Consult Specialty:: urology Referred by:: Berenice Reason for Consultation:: left renal colic - History of Present Illness Chief Complaint: left renal colic History of Present Illness: Patient s/p left pyelonephritis by report one month ago. The patient now presents with an elevated WBC and severe left colic with nausea and vominting. The patient denies fever or chills or gross hematuria. - History Source History Provided By: Patient Limitations to Obtaining History: No Limitations - Past Medical History Cardio/Vascular: Yes: Hyperlipdemia Gastrointestinal: Yes: Irritable Bowel Disease Renal/: Yes: UTI (previously admitted for pyelonephritis 10/31/16) Endocrine: No: Diabetes Mellitus - Past Surgical History Past Surgical History: Yes: Tonsillectomy - Alcohol/Substance Use Hx Alcohol Use: No History of Substance Use: reports: None - Smoking History Smoking history: Former smoker Have you smoked in the past 12 months: No Aproximately how many cigarettes per day: 10 If you are a former smoker, when did you quit?: 2011 - Social History Usual Living Arrangement: Alone History of Recent Travel: No Home Medications - Allergies Allergies/Adverse Reactions: Allergies Allergy/AdvReac Type Severity Reaction Status Date / Time No Known Allergies Allergy Verified 11/30/16 20:09 - Home Medications Home Medications: Ambulatory Orders Atorvastatin Ca [Lipitor] 40 mg PO HS 07/18/13 Albuterol Sulfate Inhaler - [Ventolin HFA Inhaler -] 1 - 2 inh PO QID PRN Metronidazole 250 mg PO TID 10/31/16 Ranitidine HCl 300 mg PO DAILY 10/31/16 Physical Exam- Vital Signs: Vital Signs Temperature 97.3 F L 12/01/16 08:53 Pulse Rate 73 12/01/16 08:53 Respiratory Rate 12/01/16 08:53 Blood Pressure 102/56 12/01/16 08:53 O2 Sat by Pulse Oximetry (%) 97 12/01/16 04:15 Constitutional: Yes: Well Nourished, No Distress, Calm Eyes: Yes: WNL, Conjunctiva Clear, EOM Intact HENT: Yes: WNL, Atraumatic, Normocephalic Neck: Yes: WNL, Supple, Trachea Midline Cardiovascular: Yes: WNL Respiratory: Yes: WNL, Regular Gastrointestinal: Yes: WNL, Normal Bowel Sounds, Soft Renal/: Yes: WNL Kidneys: Yes: WNL Pelvis: Yes: WNL External Genitalia: Yes: WNL Musculoskeletal: Yes: WNL Labs: CBC, BMP 12/01/16 13:24 12/01/16 06:00 Imaging - Results Cat Scan: Report Reviewed Assessment/Plan impression left distal ureteral stone with hydronephrosis renal colic plan patient is doing well; will start a diet and observe. Urologically stable for d /c if medically stable and tolerating a diet. Will follow-up as outpatient
--- NOTE | 2016-12-01 14:20 | DS ---
Physical Examination Vital Signs: Vital Signs Temperature 97.3 F L 12/01/16 08:53 Pulse Rate 73 12/01/16 08:53 Respiratory Rate 17 12/01/16 08:53 Blood Pressure 102/56 12/01/16 08:53 O2 Sat by Pulse Oximetry (%) 97 12/01/16 04:15 Constitutional: Yes: Calm Neck: Yes: Trachea Midline Cardiovascular: Yes: Regular Rate and Rhythm, S1, S2 Respiratory: Yes: CTA Bilaterally Gastrointestinal: Yes: Normal Bowel Sounds, Soft Edema: No Neurological: Yes: Alert, Oriented Labs: CBC, BMP 12/01/16 13:24 12/01/16 06:00 Discharge Summary Reason For Visit: KIDNEY STONE ON (L) SIDE HYDRONEPHROSIS Current Active Problems Hydronephrosis (Acute) Kidney stone on left side (Acute) Leukocytosis (Acute) Vomiting (Acute) Hospital Course: PCP: Kaci Ng - Admission Chief Complaint: left sided pain History of Present Illness: The patient is a 56 year old female with a significant past medical history of recurrent UtIs, acid reflux, IBS, and HLD who presents to the ED with complaints of suprapubic pain since earlier yesterday. The patient reports a sudden onset of suprapubic pain around 6:30 pm yesterday. She states her pain progressively worsened and her suprapubic pain is now radiating to her left flank. Patient also reports one episode of vomiting associated with presents symptoms. Patient states she was recently prescribed Cipro on Thursday for a UTI. Patient was recently admitted to the hospital on 10/31/16 for pyelonephritis and got abx. Denies fevers or chills. Denies chest pain or shortness of breath. Denies headache, lightheadedness, or dizziness. Denies dysuria or changes in urinary output. Denies any other symptoms. PCP: Dr. Ng GL: Dr. Parkinson in ER found leukocytosis of 17 ct scan shows stone at UVJ leftside and mild left sided hydronephrosis on iv abx today wbc i s 12.3 trending down seen by urology start eating if tolerates diet then dc home on po abx Condition: Stable - Instructions Diet, Activity, Other Instructions: keflex 500mg po bid for 7 days Referrals: Fabricio Galvan MD [Primary Care Provider] - Disposition: HOME - Home Medications Comprehensive Discharge Medication List: Ambulatory Orders Atorvastatin Ca [Lipitor] 40 mg PO HS 07/18/13 Albuterol Sulfate Inhaler - [Ventolin HFA Inhaler -] 1 - 2 inh PO QID PRN Metronidazole 250 mg PO TID 10/31/16 Ranitidine HCl 300 mg PO DAILY 10/31/16
[2016-12-01] MEDS ORDERED: ATORVASTATIN CA 40 MG TABLET (FP) PO SCH (22:00)
[2016-12-01] MEDS: HEPARIN NA (PORCINE) 5,000 UNITS/ML 1ML VIAL SQ SCH (22:32)
[2016-12-02 08:16] LABS: ALBUMIN 3.2 g/dl (3.4-5.0); ANION GAP 5 (8-16); CALCIUM 8.9 mg/dL (8.5-10.1); CO2 30 mmol/L (21-32); GLUCOSE,RANDOM 98 mg/dL (74-106)
[2016-12-02 08:32] LABS: ALK PHOS 133 U/L (45-117); BILIRUBIN,TOTAL 0.8 mg/dL (0.2-1.0); CREATININE 0.5 mg/dL (0.55-1.02); SGOT/AST 21 U/L (15-37); SGPT/ALT 34 U/L (12-78); TOT PROT 6.1 g/dl (6.4-8.2)
--- NOTE | 2016-12-02 09:41 | PN ---
Progress Note, Physician Chief Complaint: patient was naseous in morning felt better after eating breakfast then complaing of left flank pain and suprapubic pain right now - Current Medication List Current Medications: Active Medications Acetaminophen (Tylenol -) 650 mg PO Q4H PRN PRN Reason: FEVER OR PAIN Last Admin: 12/01/16 20:12 Dose: 650 mg Atorvastatin Calcium (Lipitor -) 40 mg PO HS [facility] Last Admin: 12/01/16 22:32 Dose: 40 mg Heparin Sodium (Porcine) (Heparin -) 5,000 unit SQ BID [facility] Last Admin: 12/01/16 22:32 Dose: 5,000 unit Potassium Chloride/Dextrose/Sod Cl (D5-1/2ns+20 Meq Kcl -) 1,000 mls @ 100 mls/ hr IV ASDIR [facility] Last Admin: 12/01/16 22:34 Dose: 100 mls/hr Ceftriaxone Sodium 1 gm/ (Dextrose) 50 mls @ 100 mls/hr IVPB DAILY [facility] Last Admin: 12/01/16 11:13 Dose: 100 mls/hr Ondansetron HCl (Zofran Injection) 4 mg IVPB Q4H PRN PRN Reason: NAUSEA AND/OR VOMITING Ranitidine HCl (Zantac -) 300 mg PO DAILY [facility] Last Admin: 12/01/16 11:03 Dose: 300 mg - Objective Vital Signs: Vital Signs Temperature 99 F 12/02/16 09:02 Pulse Rate 58 L 12/02/16 09:02 Respiratory Rate 16 12/02/16 09:02 Blood Pressure 123/73 12/02/16 09:02 O2 Sat by Pulse Oximetry (%) 97 12/01/16 09:00 Neck: Yes: Trachea Midline Cardiovascular: Yes: Regular Rate and Rhythm, S1, S2 Respiratory: Yes: CTA Bilaterally Gastrointestinal: Yes: Normal Bowel Sounds, Soft Edema: No Neurological: Yes: Alert, Oriented Labs: CBC, BMP 12/01/16 13:24 12/02/16 07:00 Problem List - Problems (1) Hydronephrosis Assessment/Plan: repeat ultrasound today to see if any change ivf urology eval noted Code(s): N13.30 - UNSPECIFIED HYDRONEPHROSIS Qualifiers: Hydronephrosis type: unspecified Qualified Code(s): N13.30 - Unspecified hydronephrosis (2) Kidney stone on left side Assessment/Plan: ivf iv abx rocephin will change po abx when she goes home Code(s): N20.0 - CALCULUS OF KIDNEY (3) Leukocytosis Assessment/Plan: repeat cbc today last wbc 12 trending down Code(s): D72.829 - ELEVATED WHITE BLOOD CELL COUNT, UNSPECIFIED (4) HLD (hyperlipidemia) Assessment/Plan: on statin Code(s): E78.5 - HYPERLIPIDEMIA, UNSPECIFIED (5) Chronic GERD Assessment/Plan: zantac Code(s): K21.9 - GASTRO-ESOPHAGEAL REFLUX DISEASE WITHOUT ESOPHAGITIS (6) History of IBS Assessment/Plan: stooped using linactolide Code(s): Z87.19 - PERSONAL HISTORY OF OTHER DISEASES OF THE DIGESTIVE SYSTEM
[2016-12-02 10:30] LABS: BASOPHIL 0.3 % (0-2.0); EOSINOPHIL 3.2 % (0-4.5); MCH 26.9 pg (25.7-33.7); MCHC 32.8 g/dl (32.0-36.0); MEAN CELL VOLUME 82.1 fl (80-96); MEAN PLT VOLUME 8.1 fl (7.5-11.1); PLATELET COUNT 277 K/MM3 (134-434); RDW 14.3 % (11.6-15.6); WHITE BLOOD COUNT 10.5 K/mm3 (4.0-10.0)
[2016-12-02] MEDS ORDERED: cefTRIAXone SODIUM 1 GM VIAL ONE (10:41)
[2016-12-02] MEDS: RANITIDINE HCL 150 MG TABLET (FP) PO SCH (10:44)
[2016-12-02] MEDS: HEPARIN NA (PORCINE) 5,000 UNITS/ML 1ML VIAL SQ SCH (11:00)
[2016-12-02] MEDS: CEFTRIAXONE 1 GM in DEXTROSE 5%-WATER - 50 ML IVPB SCH (11:00)
[2016-12-02] MEDS: D5-1/2NS+20 MEQ KCL - 1,000 ML IV SCH (11:03)
[2016-12-02 11:16] LABS: ALBUMIN 3.4 g/dl (3.4-5.0); ANION GAP 3 (8-16); BILIRUBIN,TOTAL 0.7 mg/dL (0.2-1.0); CALCIUM 9.2 mg/dL (8.5-10.1); CO2 32 mmol/L (21-32); CREATININE 0.6 mg/dL (0.55-1.02); GLUCOSE,RANDOM 78 mg/dL (74-106); SGOT/AST 23 U/L (15-37); SGPT/ALT 34 U/L (12-78); TOT PROT 6.6 g/dl (6.4-8.2)
[2016-12-02 11:17] LABS: ALK PHOS 139 U/L (45-117)
--- NOTE | 2016-12-02 14:25 | PN ---
Physical Exam: Consulting Specialty Progress Note: Infectious Disease SUBJECTIVE: 56yo F with obstructive nephrolithiasis with associated hydronephrosis. Urology saw patient yesterday and recommended no intervention at this time and discharge when medically appropriate. Pt feels better today and has been tolerating a regular diet without problem. No fevers/chills noted. Patient producing urine without problems. OBJECTIVE: Vital Signs Period Temp Pulse Resp BP Sys/Landin Pulse Ox Last 24 Hr 97.6 F-99 F 58-74 16-20 100-123/52-73 98 GENERAL: The patient is awake, alert, and fully oriented, in no acute distress. EYES: PERRL, EOMI LUNGS: CTA bilaterally, no wheezes, no crackles, no accessory muscle use. HEART: RRR, S1, S2 without murmur, rub or gallop. ABDOMEN: Soft, suprapubic tenderness, nondistended, normoactive bowel sounds MSK: No R CVA tenderness currently EXTREMITIES: No edema. NEUROLOGICAL: Alert and oriented x3 Laboratory Results - last 24 hr 12/02/16 12/02/16 12/02/16 07:00 10:10 10:10 WBC 10.5 H RBC 4.86 Hgb 13.1 D Hct 39.9 MCV 82.1 MCH 26.9 MCHC 32.8 RDW 14.3 Plt Count 277 MPV 8.1 Neutrophils % 80.0 Lymphocytes % 10.6 D Monocytes % 5.9 Eosinophils % 3.2 Basophils % 0.3 Sodium 141 141 Potassium 4.5 4.1 Chloride 106 106 Carbon Dioxide 30 32 Anion Gap 5 L 3 L BUN 12 D 11 Creatinine 0.5 L 0.6 Creat Clearance w eGFR > 60 > 60 Random Glucose 98 78 D Calcium 8.9 9.2 Total Bilirubin 0.8 0.7 AST 21 23 ALT 34 34 Alkaline Phosphatase 133 H 139 H Total Protein 6.1 L 6.6 Albumin 3.2 L 3.4 Active Medications Generic Name Dose Route Start Last Admin Trade Name Freq PRN Reason Stop Dose Admin Acetaminophen 650 mg 12/01/16 01:04 12/01/16 20:12 Tylenol - PO 650 mg Q4H PRN Administration FEVER OR PAIN Atorvastatin Calcium 40 mg 12/01/16 22:00 12/01/16 22:32 Lipitor - PO 40 mg HS SHAYE Administration Heparin Sodium (Porcine) 5,000 unit 12/01/16 22:00 12/02/16 11:00 Heparin - SQ 5,000 unit BID SHAYE Administration Potassium Chloride/Dextrose/Sod Cl 1,000 mls @ 100 mls/hr 12/01/16 01:15 11:03 D5-1/2ns+20 Meq Kcl - IV 100 mls/hr ASDIR SHAYE Administration Ceftriaxone Sodium 1 gm/ 50 mls @ 100 mls/hr 12/01/16 10:30 12/02/16 11:00 Dextrose IVPB 100 mls/hr DAILY SHAYE Administration Ondansetron HCl 4 mg 12/01/16 01:10 Zofran Injection IVPB Q4H PRN NAUSEA AND/OR VOMITING Ranitidine HCl 300 mg 12/01/16 10:00 12/02/16 10:44 Zantac - PO 300 mg DAILY SHAYE Administration ASSESSMENT: Obstructive nephrolithiasis with associated hydronephrosis Suspected UTI syndrome PLAN: WBC trending down (12.5 to 10 today) Plan per primary note is to obtain b/l renal US prior to discharge In light of iminent discharge will most likely transition to PO empiric coverage; however will await results of US Visit type - Emergency Visit Emergency Visit: No - New Patient This patient is new to me today: No - Critical Care Critical Care patient: No
[2016-12-02] MEDS ORDERED: CEFUROXIME AXETIL 500 MG TABLET PO SCH (15:18)
[2016-12-02 15:40] VITALS: BP 122/65; PULSE 79; TEMP 98.5
--- NOTE | 2016-12-02 15:52 | PN ---
Teaching Attending Note Name of Resident: Richard Bishop ATTENDING PHYSICIAN STATEMENT I saw and evaluated the patient. I reviewed the resident's note and discussed the case with the resident. I agree with the resident's findings and plan as documented. SUBJECTIVE: OBJECTIVE: ASSESSMENT AND PLAN: Nephrolithiasis Pt painfree; afebrile; WBC improved Sonogram no HN Cultures negative Switch to po ceftin 500mg bid x 7d Outpatient follow up
--- NOTE | 2016-12-09 09:49 | EKG ---
Test Reason : Blood Pressure : / mmHG Vent. Rate : 081 BPM Atrial Rate : 081 BPM P-R Int : 184 ms QRS Dur : 096 ms QT Int : 392 ms P-R-T Axes : 015 035 021 degrees QTc Int : 455 ms NORMAL SINUS RHYTHM NORMAL ECG NO PREVIOUS ECGS AVAILABLE Confirmed by NETTIE SHETTY MD ([id number]) on 12/09/2016 9:49:05 AM Referred By: Confirmed By:NETTIE SHETTY MD
== END 2016-12-02 17:42 | disposition home or self-care (01) | DRG 694 ==
LOC: JER 19:48 → JERBED 12-01 01:06 → J5S 12-01 05:18
PROVIDERS: ADMIT Family Medicine; ATTEND Family Medicine
DX: N13.2 Hydronephrosis with renal and ureteral calculous obstruction (principal); D72.829 Elevated white blood cell count, unspecified; E78.5 Hyperlipidemia, unspecified; K21.9 Gastro-esophageal reflux disease without esophagitis; Z87.891 Personal history of nicotine dependence
CPT/HCPCS: 36415; 74176; 76775-TC; 76856-TC; 80048; 80053; 81003; 85025; 87040; 87086; 90688; 93005; 93010; 99285-25; G0008; J1644

== ENCOUNTER 2017-05-01 07:40 | Day surgery (SDC) | payer BC ==
[2017-04-28 13:29] VITALS: BMI 30.4
[2017-05-01] MEDS ORDERED: MIDAZOLAM HCL 2 MG/2 ML SINGLE DOSE VIAL ONE (09:50)
[2017-05-01] MEDS ORDERED: PROPOFOL 20 ML ONE ×2 (09:50)
[2017-05-01] MEDS ORDERED: LIDOCAINE HCL 2% JELLY (5 ML/TUBE) ONE (09:52)
[2017-05-01] MEDS ORDERED: DEXAMETHASONE SOD PHOSPHATE 4 MG/1 ML VIAL ONE (09:52)
[2017-05-01] MEDS ORDERED: ONDANSETRON 4 MG/2 ML VIAL ONE ×2 (09:52→11:23)
[2017-05-01] MEDS ORDERED: KETOROLAC TROMETHAMINE 30 MG/1 ML VIAL ONE (09:52)
[2017-05-01] MEDS ORDERED: ceFAZolin SODIUM 1 GM VIAL ONE (09:52)
[2017-05-01] MEDS ORDERED: BUPIVACAINE HCL/PF 0.25% (2.5MG/ML) 10 ML VIAL IJ ONE (10:38)
[2017-05-01] MEDS ORDERED: ONDANSETRON 4 MG/2 ML VIAL IVPUSH PRN (11:16)
[2017-05-01] MEDS ORDERED: PROMETHAZINE HCL 25 MG/1 ML VIAL IVPUSH PRN (11:16)
[2017-05-01] MEDS ORDERED: oxyCODONE HCL 5 MG TABLET PO PRN ×2 (11:16)
[2017-05-01] MEDS ORDERED: LACTATED RINGERS SOLUTION 1,000 ML IV SCH (11:30)
[2017-05-01 13:18] VITALS: BP 118/62; PULSE 69; TEMP 98
--- NOTE | 2017-05-03 17:19 | OP ---
DATE OF OPERATION: 05/01/2017 LOCATION: [facility]. SURGEON: Richard Munguia MD ELECTRICAL DESIGNER: TERRI Escobar PREOPERATIVE DIAGNOSES: 1. Left knee medial and lateral meniscal tear. 2. Left knee cartilage injury. 3. Left knee synovitis. POSTOPERATIVE DIAGNOSES: 1. Left knee medial and lateral meniscal tear. 2. Left knee cartilage injury. 3. Left knee synovitis. PROCEDURE: 1. Left knee arthroscopy, partial meniscectomy, medial and lateral meniscus. 2. Left knee arthroscopy with chondroplasty and abrasion-plasty. 3. Left knee arthroscopy with synovectomy, partial, including medial meniscus. FINDINGS: 1. Medial meniscus body and posterior horn tear. 2. Lateral meniscus anterior horn and body tear. 3. Synovitis, patellofemoral, medial and lateral notch area. 4. Grade 1 to 2 cartilage injury, medial femoral condyle, with grade 2 changes diffusely in the medial tibial plateau, and anterior grade 4 changes. 5. ACL and PCL intact. 6. Diffuse grade 1 to 2 cartilage injury, lateral joint line. 7. Central grade 2 cartilage injury, patella, with grade 2 to 4 changes to patellofemoral trochlea. PROCEDURE: Informed consent was obtained. The patient came to the operating room, where the lower extremity was prepped and draped in a sterile fashion. A tourniquet was placed on the upper thigh, but not inflated. Using standard arthroscopic technique, a lateral incision and portal was made to allow for introduction of the camera into the suprapatellar bursa. This was then taken to the medial joint line, where under direct visualization, a medial incision and portal was made. Excessive synovium noted in the medial, lateral and patellofemoral and notch area was removed by an upbiter, shaver and Bovie cautery. This was found to bring in inflammatory tissue into the joint surface, a source of pain and dysfunction. Probing of the medial and lateral meniscus found tears, as described in the findings. These were removed with the upbiter and shaver and taken back to a stable rim. Grade 2 to 3 degenerative changes were treated with a chondroplasty, removing all flaking surfaces with low-setting Bovie along the periphery to prevent further flaking. Grade 4 changes, as noted, were treated with an abrasoplasty, creating a bleeding surface at the bone/cartilage interface. Aggressive debridement with shaver/martha created bleeding surface. Micro fracture also done when indicated in findings All areas of the knee were once again reexamined. The knee was then drained and a single suture was placed in all portals. A sterile dressing was placed and the patient was transferred to the recovery room without complication. RICHARD MUNGUIA M.D. [id number]
--- NOTE | 2017-05-07 12:17 | PATH ---
Surgical Pathology Report Patient Name: GRIFFIN GREEN Med. Rec. #: [id number] /Age/Gender: 1960 (Age: 56) / F Account: [id number] Location: [facility] AMBULATORY Taken: 05/01/2017 Received: 05/01/2017 Reported: 05/07/2017 Physicians: Richard Urban M.D. Specimen(s) Received LEFT KNEE SHAVINGS Clinical History Left knee lateral derangement Final Diagnosis KNEE, LEFT, ARTHROSCOPIC SHAVINGS: FIBROSYNOVIAL TISSUE SHOWING DENSE LYMPHOPLASMOCYTIC INFILTRATE AND REACTIVE SYNOVIAL HYPERPLASIA. (SEE NOTE) FIBROCARTILAGINOUS AND FIBROADIPOSE TISSUE WITH NO PATHOLOGIC FINDINGS. Note: Although these findings are non-specific, dense lymphoplasmacytic infiltrate involving synovium with reactive synovial hyperplasia may be seen in association with rheumatoid arthritis. Correlation with clinico-radiologic and serologic findings is suggested. Electronically Signed Tess Edgar M.D. Gross Description Received in formalin, labeled "left knee shavings," is a 3.5 x 3.3 x 0.3 cm. aggregate of torres-yellow soft tissue fragments. A textile machinery sales representative portion is submitted in one cassette. 05/01/201705/01/2017
== END 2017-05-01 13:05 | disposition home or self-care (01) ==
LOC: FASU 07:40
PROVIDERS: ATTEND Orthopaedic Surgery
PROC: 0SBD4ZZ Excision of Left Knee Joint, Percutaneous Endoscopic Approach (ICD-10-PCS; 2017-05-01)
PROC: 0SBD4ZZ Excision of Left Knee Joint, Percutaneous Endoscopic Approach (ICD-10-PCS; 2017-05-01)
PROC: 0SBD4ZZ Excision of Left Knee Joint, Percutaneous Endoscopic Approach (ICD-10-PCS; principal; 2017-05-01 10:31)
DX: S83.242A Other tear of medial meniscus, current injury, left knee, initial encounter (principal); S83.282A Other tear of lateral meniscus, current injury, left knee, initial encounter; S83.8X2A Sprain of other specified parts of left knee, initial encounter; M65.862 Other synovitis and tenosynovitis, left lower leg; X58.XXXA Exposure to other specified factors, initial encounter; Y93.89 Activity, other specified; Y92.89 Other specified places as the place of occurrence of the external cause
CPT/HCPCS: 88304-TC; 94760

== ENCOUNTER 2020-09-09 09:52 | Emergency (ER) | payer BC ==
[2020-09-09 09:58] VITALS: BP 111/72; PULSE 86; BMI 28.3
[2020-09-09 10:44] VITALS: TEMP 98
[2020-09-10 11:07] LABS: SARS-CoV-2 NAA Not Detected (Not Detected)
== END 2020-09-09 11:44 | disposition home or self-care (01) ==
LOC: JER 09:52
DX: R05 Cough (principal)
CPT/HCPCS: 87804; 99283-25; C9803; U0003; U0005

== ENCOUNTER 2023-10-08 16:09 | Emergency (ER) | payer BC ==
[2023-10-08 16:21] VITALS: BP 135/73; PULSE 81; RESP 17; TEMP 98.4; BMI 28.0
[2023-10-08] MEDS ORDERED: LIDOCAINE 4% PATCH TP ONE (17:13)
[2023-10-08] MEDS ORDERED: ACETAMINOPHEN 325 MG TABLET (FP) ONE (17:14)
[2023-10-08] MEDS ORDERED: diazePAM 2 MG TABLET ONE (17:17)
[2023-10-08] MEDS: diazePAM 2 MG TABLET PO ONE (17:20)
[2023-10-08] MEDS: ACETAMINOPHEN 500 MG TABLET (FP) PO ONE (17:20)
[2023-10-08] MEDS: LIDOCAINE 4% PATCH TP ONE (17:20)
[2023-10-08] MEDS ORDERED: LIDOCAINE PATCH REMOVAL MC SCH (22:00)
== END 2023-10-08 20:07 | disposition home or self-care (01) ==
LOC: JERFT 16:09
DX: S16.1XXA Strain of muscle, fascia and tendon at neck level, initial encounter (principal); M62.838 Other muscle spasm; X50.1XXA Overexertion from prolonged static or awkward postures, initial encounter
CPT/HCPCS: 99283-25